=== PATIENT | male | born 1990 | race Caucasian/White ===

== ENCOUNTER 2017-02-10 08:41 | Emergency (ER) | payer BC ==
[2017-02-10 08:45] VITALS: BP 107/70; PULSE 138; RESP 18; TEMP 97.2; O2SAT 97; BMI 24.3
--- NOTE | 2017-02-10 09:29 | ED PDOC ---
Upper Extremity Pain/Injury Time Seen by Provider: 02/10/17 08:57 Chief Complaint (Nursing): Finger,Hand,&Wrist Chief Complaint (Provider): Hand injury History Per: Patient History/Exam Limitations: no limitations Onset/Duration Of Symptoms: Days (Yesterday 7pm) Current Symptoms Are (Timing): Still Present Additional Complaint(s): Pt. was going down an escalator and stumbled, landing on his left hand. Did not hit head or neck. Has no pain elsewhere. Has pain to the left hand, finger , and wrist. No numbness, tingles. Able to move all fingers and make a fist with pain. No nausea, vomit, dizziness. Walks with no issues. Had cut tendon last year and got tdap then. Past Medical History Reviewed: Nursing Documentation, Vital Signs Vital Signs: Last Vital Signs Temp 97.2 F L 02/10/17 08:43 Pulse 138 H 02/10/17 08:43 Resp 18 02/10/17 08:43 BP 107/70 02/10/17 08:43 Pulse Ox 97 02/10/17 08:43 - Medical History Other PMH: finger tendon laceration - Surgical History Other surgeries: tendon rupture fix - Family History Family History: States: Unknown Family Hx - Social History Current smoker - smoking cessation education provided: No Alcohol: None Drugs: Denies - Immunization History Hx Tetanus Toxoid Vaccination: Yes (11/2016) - Home Medications Home Medications: Ambulatory Orders Medication Instructions Recorded Cephalexin [cephalexin] 500 mg PO TID 7 Days 02/10/17 Ibuprofen [Motrin] 600 mg PO TID 7 Days 02/10/17 - Allergies Allergies/Adverse Reactions: Allergies Allergy/AdvReac Type Severity Reaction Status Date / Time No Known Allergies Allergy Verified 02/10/17 09:13 Review of Systems Constitutional: Negative for: Weakness Eyes: Negative for: Pain, Vision Change, Conjunctivae Inflammation, Eyelid Inflammation Cardiovascular: Negative for: Chest Pain Respiratory: Negative for: Shortness of Breath Gastrointestinal: Negative for: Nausea, Vomiting Musculoskeletal: Positive for: Hand Pain Neurological: Negative for: Weakness, Numbness, Incoordination, Confusion, Seizures, Headache Physical Exam - Reviewed Nursing Documentation Reviewed: Yes Vital Signs Reviewed: Yes - Physical Exam Appears: Positive for: Non-toxic, No Acute Distress Head Exam: Positive for: ATRAUMATIC, NORMAL INSPECTION, NORMOCEPHALIC Skin: Positive for: Normal Color, Warm, DRY Eye Exam: Positive for: Normal appearance, EOMI, PERRL. Negative for: Nystagmus , Periorbital swelling ENT: Positive for: Normal ENT Inspection. Negative for: Sinus Pain/Drainage, Nasal Congestion, Tonsillar Exudate Neck: Positive for: Normal, Painless ROM, Supple Cardiovascular/Chest: Positive for: Regular Rate, Rhythm, Chest Non Tender. Negative for: Edema Respiratory: Positive for: CNT, Normal Breath Sounds Gastrointestinal/Abdominal: Positive for: Normal Exam, Soft. Negative for: Tenderness Back: Positive for: Normal Inspection. Negative for: L CVA Tenderness, R CVA Tenderness Extremity: Positive for: Other (Full ROM of all extremities; L index swollen and painful ROM; left index swollen, tender with U shaped abrasion ventral mid finger; L dorsal hand lateral with tenderness, swelling, small area of erythema ; wrist nontender, no snuff box tenderness; linear laceration 0.25cm left lateral vental hand that is closed and dried blood ). Negative for: Pedal Edema Neurologic/Psych: Positive for: Alert, stamping operator II-XII, Oriented. Negative for: Motor/Sensory Deficits - ECG O2 Sat by Pulse Oximetry: 97 - Radiology X-Ray: Interpreted by Me, Viewed By Me, Read By Radiologist X-Ray Interpretation: Fracture (left 2nd finger with possible fracture of the distal aspect of the proximal phalanx of the left 2nd finger.) - Progress ED Course And Treament: 1047: Stable. AAOx3. Pain controlled. Laceration delayed arrival to ED and in early closing stage. Will do secondary close; no stitches. Pt. states can' t close now as he was delayed in coming to the ED. Will give antiboitcs on dc. Dr. Jain spoken. Wants pt. to be in splint and fu with him in 1 week. Procedures - Splinting Location: left index finger Pre-Made Type: metal Pre-Proc Neuro Vasc Exam: normal Post-Proc Neuro Vasc Exam: normal Disposition - Clinical Impression Clinical Impression: Fracture, finger, Laceration of hand with delay in treatment - Patient ED Disposition Is Patient to be Admitted: No Counseled Patient/Family Regarding: Studies Performed, Diagnosis, Need For Followup, Rx Given - Disposition Referrals: Kris Jain MD [Medical Doctor] - 02/12/17 Disposition: Routine/Home Disposition Time: 10:59 Condition: STABLE Additional Instructions: See the hand surgeon without fail. Return if not better in 3 days. Prescriptions: Cephalexin [cephalexin] 500 mg PO TID 7 Days Ibuprofen [Motrin] 600 mg PO TID 7 Days Instructions: Finger Fracture (ED), Laceration Without Closure (ED)
--- NOTE | 2017-02-10 09:53 | RAD ---
PROCEDURE: Left Hand Radiographs. HISTORY: pain COMPARISON: None. FINDINGS: BONES: Three views of the left hand were performed for left hand pain. There appears to be some mild soft tissue swelling in the left 2nd finger region. There is a small amount of subtle lucency seen in the distal aspect of the proximal phalanx of the left 2nd finger with a tiny cathleen of bone also seen adjacent to the joint space of the PIP joint. A small nondisplaced fracture of the distal phalanx is not excluded. No dislocation is seen. Remainder the digits are grossly intact. No periosteal reaction is seen. No erosions are noted. JOINTS: See above SOFT TISSUES: See above OTHER FINDINGS: Visualized carpal bones are grossly intact as well as the distal radius. IMPRESSION: Soft tissue swelling of the left 2nd finger with possible fracture of the distal aspect of the proximal phalanx of the left 2nd finger. Clinical correlation suggested.
--- NOTE | 2017-02-10 09:54 | RAD ---
PROCEDURE: Left Wrist Radiographs. HISTORY: pain COMPARISON: None. FINDINGS: BONES: Three views of the left wrist were performed. There is suboptimal evaluation of the navicular bone. No fracture is seen. No erosions are noted. No carpal bone widening is identified. Distal radius is intact. No significant soft tissue swelling is seen. JOINTS: Normal. No dislocation. SOFT TISSUES: Normal. OTHER FINDINGS: None. IMPRESSION: No appreciable fracture on this three-view left wrist x-ray. Overlap of the navicular bone limits evaluation. If there is strong clinical concern for navicular fracture, dedicated navicular view should be obtained.
[2017-02-10] MEDS ORDERED: Povidone Iodine Topical 10% Sol ONE (10:43)
== END 2017-02-10 11:29 | disposition home or self-care (01) ==
LOC: H.ER 08:41
DX: S62.601A Fracture of unspecified phalanx of left index finger, initial encounter for closed fracture (principal); S61.412A Laceration without foreign body of left hand, initial encounter; W10.0XXA Fall (on)(from) escalator, initial encounter